=== PATIENT | male | born 2005 | race Caucasian/White ===

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

== ENCOUNTER 2023-01-25 11:09 | Emergency (ER) | payer OTHER, SELFPAY ==
--- NOTE | 2023-01-25 | ECG_ITS ---
Test Reason : CP Blood Pressure : / mmHG Vent. Rate : 053 BPM Atrial Rate : 053 BPM P-R Int : 148 ms QRS Dur : 102 ms QT Int : 422 ms P-R-T Axes : 036 011 046 degrees QTc Int : 395 ms Sinus bradycardia Incomplete right bundle branch block Nonspecific ST abnormality Inferior leads Abnormal ECG When compared with ECG of 28-MAY-2022 01:29, No significant change was found Referred By: Generic ED Physician Electronically Signed By:DENIZ ODONNELL MD
--- NOTE | ~2023-01-25 | XR_ITS ---
EXAMINATION: CHEST 2 VIEWS CLINICAL INFORMATION: Cough/chest pain. COMPARISON: 02/16/2018. TECHNIQUE: PA and lateral views of the chest obtained. FINDINGS: The lungs are well expanded. No focal infiltrate, effusion, edema, or pneumothorax. Cardiac and mediastinal silhouettes are within normal limits for technique. No acute bony abnormality seen XR/XR chest 2V IMPRESSION: No evidence of acute disease
[2023-01-25 11:12] VITALS: BP 128/55; PULSE 99; RESP 18; TEMP 36.7; O2SAT 99; BMI 21.8
--- NOTE | 2023-01-25 11:18 | ED.GENADULT ---
HPI - General Adult General Chief complaint: Upper Respiratory Symptoms Stated complaint: chest pain/ throat pain Time Seen by Provider: 01/25/23 11:21 Source: patient Mode of arrival: ambulatory Limitations: no limitations History of Present Illness HPI narrative: 17-year-old male presents to the emergency department for evaluation of chest pain, cough, sore throat for the past 3 days worsening. Patient reports substernal nonradiating chest pain worse with cough better at rest however still present at rest. No shortness of breath associated with this. Cough dry, not coughing anything up. Sore throat worse with swallowing. No known sick contacts. Denies fevers, chills, headache, vision changes, dizziness, weakness, nausea, vomiting, diarrhea, abdominal pain. Related Data Previous Rx's Medication Instructions Recorded acetaminophen 500 mg tablet 500 mg PO Q6H PRN fever or pain 07/28/22 (Tylenol Extra Strength) #14 tabs cyclobenzaprine 5 mg tablet 5 mg PO Q8H PRN pain (scale score 07/28/22 7-10) 3 days #6 tabs lidocaine 5 % topical patch 1 patch topical DAILY PRN pain #30 07/28/22 (Lidoderm) ea naproxen 500 mg tablet 500 mg PO BID PRN pain 10 days #20 07/28/22 tabs Allergies Allergy/AdvReac Type Severity Reaction Status Date / Time No Known Allergies Allergy Verified 01/25/23 11:11 Review of Systems Review of Systems: Constitutional : No Weight loss, No Fever, No Chills, + Fatigue, + Malaise ENT/Mouth : + sore throat, No Rhinorrhea Eyes: No Eye Pain, No Swelling, No Redness Cardiovascular : No Chest Pain, No SOB, No Dyspnea on Exertion, No Orthopnea, No Edema, No Palpitations Respiratory : + Cough, No Sputum, No Wheezing Gastrointestinal : No Nausea, No Vomiting, No Diarrhea, No Constipation, No abdominal Pain, No Hematochezia, No Melena Genitourinary : No Dysuria, No Urinary Frequency, No Hematuria, Musculoskeletal : No joint pain, No Myalgias, No Joint Swelling Skin : No Skin Lesions, No rash Neuro : No Weakness, No Numbness, No Dizziness, No Headache Psych : No Anxiety/Panic, No Depression All other systems reviewed and are negative Yes all other systems are reviewed and are negative [facility] Past Medical History Attestation statement: The following information was validated with the patient. Source: old records reviewed and nursing notes reviewed Medical History Asthma Seasonal allergies Social History Social History Alcohol intake: never Patient Tobacco Use Status: Never used Tobacco Advance Directives: No Advance Directives Information Provided: No Physical Exam ED Vital Signs: Vital Signs - 24 hr 01/25/23 11:12 Temperature 98.0 F Pulse Rate 99 Respiratory Rate 18 Blood Pressure 128/55 L Pulse Oximetry 99 Oxygen Delivery Method Room Air BMI result Body Mass Index 21.8 vss Appearance: Alert.? Oriented X3.? No acute distress.? Head: Normocephalic, atraumatic, no step-offs or deformities Eyes: Pupils equal, round and reactive to light.? ENT: Pharynx normal, no abscess or exudates.??External ears normal, TMs normal bilaterally and EAC's normal. No pain with manipulation of external ears bilaterally. No mastoid tenderness. Speaking in full sentences controlling secretions well. Neck: Normal inspection.? Neck supple.? CVS: Normal heart rate and rhythm.? Pulses normal.? Respiratory: No respiratory distress.? Breath sounds normal.? Abdomen: Soft and nontender.? Skin: Skin warm and dry.? Normal skin color.? Normal skin turgor.? Extremities: No lower extremity edema.? No calf ttp. 5/5 strength to bilateral upper and lower extremities Back: No midline tenderness, no C-spine tenderness, full range of motion, no CVA tenderness bilaterally Neuro: Oriented X 3.? No motor deficit.? No sensory deficit. CN 2-12 intact Course Course Course Narrative: Complains of cough sore throat, pain in chest with cough Labs/x-ray ordered This rapid medical exam done in triage pending full evaluation by ER provider for full history and physical, evaluation of her results and dispo Reevaluation(s) Reevaluation #1: CBC within normal limits. Chemistry no acute findings. Troponin negative EKG nonischemic. COVID and strep negative this is likely viral illness will encourage saltwater gargles. Educated patient on diagnosis and treatment plan, answered all question, patient verbalizes understanding. At this time patient will be discharged home, advised to return with new or worsening symptoms. Educated on worrisome signs and symptoms and when to return. At this time I feel comfortable discharge home. Time: 12:14 Reevaluation #2: patient eating at time of dc Medical Decision Making Medical Decision Making [facility] Narrative: [id number] 17 yo M presents w/ sore thorat, congestion, chest discomfort w/ cough X 3 days PE Pharynx normal, no abscess or exudates.??External ears normal, TMs normal bilaterally and EAC's normal. No pain with manipulation of external ears bilaterally. No mastoid tenderness. Speaking in full sentences controlling secretions well. Likely viral ilness, URI, pharyngitis. Unlikley strep, retropharyngeal, peritonsillar abscess, threat to airway, epiglottitis, pneumonia, pulmonary embolism, ACS Plan viral test, x-ray. Differential Diagnosis Differential Diagnoses: The differential diagnosis associated with the presentation includes Likely viral ilness, URI, pharyngitis. Unlikley strep, retropharyngeal, peritonsillar abscess, threat to airway, epiglottitis, pneumonia, pulmonary embolism, ACS Admission/Observation Consideration of admission/observation: Escalation of care including admission/observation considered Lab Data [facility] Lab Attestation statement: I reviewed the patient's lab results. 01/25/23 11:43 01/25/23 11:43 Labs: Lab Results 01/25/23 01/25/23 Range/Units 11:18 11:43 WBC 5.3 (4.8-10.8) X10*3/uL RBC 5.24 (4.60-5.80) X10*6/uL Hgb 14.7 (14.0-18.0) g/dl Hct 43.9 (42.0-52.0) % MCV 83.8 (80.0-98.0) fL MCH 28.1 (27.0-33.0) pg MCHC 33.5 (31.0-36.0) g/dl RDW 12.2 (11.0-16.0) % Plt Count 161 (160-400) X10*3/uL MPV 11.9 (9.4-12.4) fL Immature Gran % (Auto) 0.2 (0.0-0.4) % Neut % (Auto) 53.4 (45-73) % Lymph % (Auto) 38.0 (20-40) % [place] % (Auto) 5.6 (2-11) % Eos % (Auto) 2.1 (0-4) % Baso % (Auto) 0.7 (0-2) % Lymph # (Auto) 2.0 (1.2-4.9) X10*3/uL [place] # (Auto) 0.3 (0.1-1.2) X10*3/uL Eos # (Auto) 0.1 (0.0-0.4) X10*3/uL Baso # (Auto) 0.0 (0.0-0.2) X10*3/uL Abs Immat Gran (auto) 0.01 (0.00-0.03) X10*3/uL Absolute Neuts (auto) 2.9 (2.0-8.3) x10*3/uL Absolute Nucleated RBC 0.000 (0.0-0.012) X10*3/uL Nucleated RBC % (auto) 0.0 (0.0-0.2) /100WBC Sodium 139 (135-145) mmol/L Potassium 3.6 (3.3-5.1) mmol/L Chloride 103 (96-108) mmol/L Carbon Dioxide 30 H (22-29) mmol/L Anion Gap 10 L (12-20) BUN 11 (9-16) mg/dL Creatinine 0.81 (0.5-1.4) mg/dL Estim Creat Clear Calc 147.1 Estimated GFR > 60 Random Glucose 95 (60-115) mg/dL Calcium 9.4 (8.4-10.2) mg/dL Troponin I High Sens < 2.7 (<3.5-35.0) ng/L COVID-19 (CARI) Negative (Negative) COVID-19 Clin Com See Note S. pyogenes GrpA MARIA ESTHER Negative (Negative) Independent Interpretation I performed an independent interpretation of an: EKG (Ventricular rate of 53, NE normal, QRS normal, QT/QTC normal. EKG with sinus bradycardia no ST elevations or inversions concerning for acute ischemia.) and Plain X-Ray ( XR/XR chest 2V IMPRESSION: No evidence of acute disease) Radiology Impression Discussion of test interpretation with radiology: I have reviewed the radiologist's reading. Critical Care Time Critical Care Time Critical Care Time: No Discharge Plan Discharge Clinical Impression: Upper respiratory infection, Pharyngitis Patient Disposition: Still a Patient Instructions: Pharyngitis (ED), Upper Respiratory Infection (ED), Viral Syndrome (ED) Additional Instructions: Take your medications as prescribed. If you were prescribed antibiotics today, it is important that you take your medication to their entirety, do not skip any doses, do not finish them early. Follow-up with your primary care provider this week. Return to the emergency department with new or worsening symptoms. Such as fevers, chills, chest pain, shortness of breath, nausea, vomiting, dizziness, headache, vision changes, lethargy In case of emergency call 911 You tested negative for strep and COVID. Please use salt water gargles to help your throat. This is likely viral. No need for antibiotics. Prescriptions: No Action acetaminophen [Tylenol Extra Strength] 500 mg tablet 500 mg PO Q6H PRN (Reason: fever or pain) Qty: 14 0RF lidocaine [Lidoderm] 5 % adhesive patch,medicated 1 patch topical DAILY MDD remove after 12 hours PRN (Reason: pain) Qty: 30 0RF Rx Instructions: leave on most painful area for up to 12 hrs naproxen 500 mg tablet 500 mg PO BID PRN (Reason: pain) 10 Days Qty: 20 0RF cyclobenzaprine 5 mg tablet 5 mg PO Q8H PRN (Reason: pain (scale score 7-10)) 3 Days Qty: 6 0RF Referrals: Physician,Unknown J [Primary Care Provider] - 2 days Stand Alone Forms: Work/School Release
[2023-01-25 11:43] LABS: COVID-19 Test Negative (Negative); IDNOW Serial# 08D9AD1C; IDNOW Serial# BCCEAD1C; Strep A Nucleic Acid Negative (Negative)
[2023-01-25 11:49] LABS: MANUAL DIFF FLAG NO
[2023-01-25 11:51] LABS: Basophils Percent Auto 0.7 % (0-2); Eosinophils Absolute Auto 0.1 X10*3/uL (0.0-0.4); Eosinophils Percent Auto 2.1 % (0-4); Hematocrit 43.9 % (42.0-52.0); Hemoglobin 14.7 g/dl (14.0-18.0); Imm Gran Abs Auto 0.01 X10*3/uL (0.00-0.03); Imm Gran Pct Auto 0.2 % (0.0-0.4); Mean Corpuscular HGB Conc 33.5 g/dl (31.0-36.0); Mean Corpuscular Hemoglobin 28.1 pg (27.0-33.0); Mean Corpuscular Volume 83.8 fL (80.0-98.0); Mean Platelet Volume 11.9 fL (9.4-12.4); Monocytes Absolute Auto 0.3 X10*3/uL (0.1-1.2); Monocytes Percent Auto 5.6 % (2-11); Neutrophils Absolute Auto 2.9 x10*3/uL (2.0-8.3); Neutrophils Percent Auto 53.4 % (45-73); Platelet Count 161 X10*3/uL (160-400); Red Blood Count 5.24 X10*6/uL (4.60-5.80); Red Cell Distribution Width 12.2 % (11.0-16.0); White Blood Count 5.3 X10*3/uL (4.8-10.8)
[2023-01-25 12:04] LABS: Anion Gap 10 (12-20); Blood Urea Nitrogen 11 mg/dL (9-16); Calcium 9.4 mg/dL (8.4-10.2); Carbon Dioxide 30 mmol/L (22-29); Chloride 103 mmol/L (96-108); Creatinine Clr Calc Pharmacy 147.1; Estimated Glomerular Filt Rate > 60; Glucose Random 95 mg/dL (60-115); Potassium 3.6 mmol/L (3.3-5.1); Sodium 139 mmol/L (135-145)
[2023-01-25 12:13] LABS: Troponin-I High Sensitivity < 2.7 ng/L (<3.5-35.0)
== END 2023-01-25 12:21 | disposition home or self-care (01) ==
PROVIDERS: Physician Assistant; Emergency Provider Emergency Medicine
DX: J06.9 Acute upper respiratory infection, unspecified (principal); J02.9 Acute pharyngitis, unspecified; Z11.52 Encounter for screening for COVID-19; J45.909 Unspecified asthma, uncomplicated
CPT/HCPCS: 36415; 71046; 80048; 84484; 85025; 87635; 87651; 93005; 99283; 99284

== ENCOUNTER 2023-05-07 09:01 | Emergency (ER) | payer OTHER, SELFPAY ==
--- NOTE | ~2023-05-07 | CT_ITS ---
EXAMINATION: CT SOFT TISSUE NECK WITH CONTRAST CLINICAL INFORMATION: Concern for mediastinal hemorrhage. COMPARISON: Noncontrast CT scan of the neck earlier 05/07/2023. TECHNIQUE: Following the intravenous administration of 60 mL of Omnipaque 350 intravenous contrast, helical imaging was performed in the axial plane with generation of coronal and sagittal reformatted images. This CT examination was performed using dose optimization techniques as appropriate, variously including the following: *Automated exposure control *Adjustment of mA and/or kV according to patient size (this includes techniques or standardized protocols for targeted exams where dose is matched to indication/reason for exam; i.e. extremities or head) *Use of iterative reconstruction technique DLP: 571 mGy-cm FINDINGS: No hemorrhage is demonstrated there are mildly prominent lymph nodes at multiple levels in the neck bilaterally, which are likely reactive. The parotid glands are homogeneous in attenuation. The submandibular glands are normal. The palatine tonsils are moderately prominent bilaterally. The laryngeal structures are normal. The parapharyngeal fat is preserved. The carotid sheath vasculature opacifies normally. No extra mucosal soft tissue mass or fluid collection is seen. No retropharyngeal fluid collection is seen. The thyroid gland is normal. There is no mediastinal lymphadenopathy. Soft tissue fullness anterior to the superior mediastinum and aortic arch is likely thymus. There is no evidence of leakage of contrast. The left vertebral artery arises directly off the aortic arch, which is a normal variant. There is a 0.8 cm cyst in the right hilum. The visualized lung charles are well-aerated. There are no pleural effusions or pneumothoraces. The mastoid air cells and visualized portions of the paranasal sinuses are well-aerated. The temporomandibular joints are normal. No periapical disease is identified. There are no acute osseous findings. There is mild reversal of the cervical lordosis which is likely positional or due to muscle spasm. The imaged portions of the brain parenchyma are unremarkable. CT/CT soft tissue neck w IV con IMPRESSION: 1. There is no evidence of mediastinal hemorrhage. There are mildly prominent lymph nodes at multiple levels in the neck bilaterally, which are likely reactive. The palatine tonsils are moderately prominent bilaterally.
--- NOTE | ~2023-05-07 | CT_ITS ---
EXAMINATION: CT SOFT TISSUE NECK WITHOUT CONTRAST CLINICAL INFORMATION: Pain following injury COMPARISON: None available. TECHNIQUE: Helical imaging was performed in the axial plane with generation of coronal and sagittal reformatted images. This CT examination was performed using dose optimization techniques as appropriate, variously including the following: *Automated exposure control *Adjustment of mA and/or kV according to patient size (this includes techniques or standardized protocols for targeted exams where dose is matched to indication/reason for exam; i.e. extremities or head) *Use of iterative reconstruction technique DLP: 625 mGy-cm AGRICULTURAL RESEARCH TECHNICIAN: Cervical lordotic straightening. No prevertebral soft tissue swelling. FINDINGS: Nasopharynx hypopharyngeal, retropharyngeal and laryngeal structures are unremarkable. Tonsils are symmetrically prominent with no fluid or air collections. Submandibular and parotid glands are unremarkable in appearance. Evaluation of the vascular structures and lymph nodes limited without oral contrast. Bilateral prominent cervical lymph nodes are seen, largest on the left measuring 2.1 cm, largest on the right measuring 2.2 cm. Muscles appear symmetric and without focal abnormality. No abnormal soft tissue fluid collections or stranding identified. There is suboptimal visualization of the thyroid. Upper thoracic esophagus appears thickened. 1.1 x 2.2 cm hyperdensity anterior mediastinum. Bony structures are intact. Mild cervical lordotic straightening. Visualized intracranial structures are unremarkable in appearance. Intraorbital structures within normal limits. Visualized sinuses and mastoids are free of disease. Visualized lungs are unremarkable. CT/CT soft tissue neck wo IV con IMPRESSION: 2.2 cm anterior mediastinal hyperdensity, possibly related to thymus in this 17-year-old patient. MRI would be useful. If there is a clinical concern/mechanism of injury for posttraumatic mediastinal hemorrhage, IV contrast-enhanced CT would be advised. Prominent cervical lymph nodes and tonsillar enlargement. Findings communicated directly to JUSTYN Wade in the emergency room, 05/07/2023 at 12:27 PM.
[2023-05-07 09:15] VITALS: BP 115/69; PULSE 58; RESP 19; TEMP 36.6; O2SAT 98; BMI 20.9
--- NOTE | 2023-05-07 10:13 | ED.GENADULT ---
HPI - General Adult General Chief complaint: Neck Pain/Injury Stated complaint: Laryngitis Time Seen by Provider: 05/07/23 10:12 Source: patient and family (patient's mother) Mode of arrival: ambulatory Limitations: no limitations History of Present Illness HPI narrative: 17 yo male with pmhx of asthma presents to the ED c/o voice changes. Pt states Friday (05/05) he was hit in the throat while playing basketball by another players shoulder. He woke up Friday with voice changes saying he sounds different when he talks, Pt sounds slightly hoarse when talking. He states his painis mostly lower in his throat, difficulty breathing, LOC, bleeding from the injury sight, pain with swallowing or difficulty eating/drinking. Onset (ago): day(s) (2) Radiation: non-radiation Severity: mild Severity scale (1-10): 3 Pain Consistency: constant Relieving factors: none Exacerbating factors: none Associated symptoms: denies other symptoms Treatments prior to arrival: none Related Data Previous Rx's Medication Instructions Recorded acetaminophen 500 mg tablet 500 mg PO Q6H PRN fever or pain 07/28/22 (Tylenol Extra Strength) #14 tabs cyclobenzaprine 5 mg tablet 5 mg PO Q8H PRN pain (scale score 07/28/22 7-10) 3 days #6 tabs lidocaine 5 % topical patch 1 patch topical DAILY PRN pain #30 07/28/22 (Lidoderm) ea naproxen 500 mg tablet 500 mg PO BID PRN pain 10 days #20 07/28/22 tabs Allergies Allergy/AdvReac Type Severity Reaction Status Date / Time No Known Allergies Allergy Verified 05/07/23 09:15 Review of Systems Constitutional: Constitutional: Reports no additional constitutional complaints, Denies chills, Denies fever(s) and Denies night sweats Eyes: Eyes: Reports no additional eye complaints, Denies blurry vision, Denies change in vision, Denies diplopia, Denies eye discharge, Denies loss of vision and Denies eye pain ENT: Reports change in voice, Denies dizziness and Reports sore throat Cardiovascular: Cardiovascular: Reports no additional cardiovascular complaints, Denies chest pain, Denies lightheadedness, Denies Loss of Consciousness and Denies dyspnea Respiratory: Respiratory: Reports no additional respiratory complaints and Denies dyspnea Gastrointestinal: Gastrointestinal: Reports no additional gastrointestinal complaints, Denies abdominal pain, Denies melena, Denies hematochezia, Denies change in bowel habits and Denies change in stool character Genitourinary: Genitourinary: Reports no additional male genitourinary complaints, Denies hematuria, Denies oliguria, Denies difficulty urinating, Denies dysuria, Denies urinary frequency, Denies urinary hesitancy, Denies urinary incontinence and Denies urinary urgency Musculoskeletal: Musculoskeletal: Reports no additional musculoskeletal complaints, Denies numbness and Denies tingling Neurologic: Denies dizziness, Denies loss of vision, Denies numbness and Denies tingling Psychiatric: Psychiatric: Reports no additional psychiatric complaints Endocrine: Endocrine: Reports no additional endocrine complaints Hematologic/Lymphatic: Hematologic/Lymphatic: Reports no additional hematologic/lymphatic complaints Allergic/Immunologic: Allergic/Immunologic: Reports no additional allergic/immunologic complaints PMFSH Past Medical History Attestation statement: The following information was validated with the patient. (all information validated with the patient's mother) Source: old records reviewed, obtained from family (patient's mother provided additional history and confirmed the history provided by the patient) and nursing notes reviewed Medical History Seasonal allergies Asthma Social History Social History Alcohol intake: never Patient Tobacco Use Status: Never used Tobacco Advance Directives: No Advance Directives Information Provided: No Physical Exam ED Vital Signs: Vital Signs - 24 hr 05/07/23 09:15 05/07/23 12:50 Temperature 98 F Pulse Rate 58 58 Respiratory Rate 19 16 Blood Pressure 115/69 97/58 L Pulse Oximetry 98 100 Oxygen Delivery Method Room Air Room Air BMI result Body Mass Index 20.9 Const General: cooperative, no acute distress, alert and awake Nutritional Appearance: well nourished Orientation/consciousness: patient oriented x3 Limitations: no limitations HENMT Head: Yes normal to inspection and Yes atraumatic Ears: hearing grossly normal bilaterally and external ears normal General nose exam: Normal external nose present, no nasal discharge noted and no epistaxis Face and sinus: Yes normal facial exam, No abrasion and No laceration Mouth: Normal oral and palatal mucosa present, no drooling and no muffled voice Throat: Yes other (pain with palpation of the lower trachea) Eyes General: appearance normal, both eyes and all related structures Periorbital: periorbital findings normal Eyelids: Yes eyelids normal Conjunctivae: conjunctivae normal Pupils: Equal, round and reactive pupils present EOM: EOMs intact bilaterally Neck Neck: Yes normal visual inspection, Yes full ROM and Yes no lymphadenopathy Chest Chest palpation & inspection: normal inspection of the chest Resp Effort & Inspection: normal respiratory effort and able to speak in complete sentences GI Inspection: Yes normal to inspection Neuro General: patient oriented x3 and moves all extremities Cranial nerves: Yes Equal, round and reactive pupils present Cognition (Neuro): normal cognition Motor exam (neuro): 5/5 motor strength present throughout Sensory Exam: Normal double simultaneous stimulation for sensation Coordination: [id number] test normal Extrem General: Yes normal to inspection, Yes full ROM and Yes capillary refill normal Psych Appearance: grossly normal Mental Status: mental status grossly normal Affect: normal affect Attitude: cooperative Thought process: Normal thought process present Thought content: Normal thought content present Insight: Good insight present (Psych) Medications Administered Discontinued Medications Generic Name Dose Route Start Last Admin Trade Name Annmarie PRN Reason Stop Dose Admin Iohexol 100 ml 05/07/23 13:44 05/07/23 13:45 Iohexol 350 Mg/Ml 100 Ml Infus..Btl IV 05/07/23 13:45 60 ml ONCE ONE Administration Medical Decision Making Medical Decision Making [facility] Narrative: Patient is a 17 year old assigned male at with no reported medical history presenting to the emergency department today with throat pain after being hit with another person's shoulder. Patient's physical exam was as noted in the physical exam portion of this note. Patient's blood work was unremarkable. Patient's initial CT soft tissue neck showed a possible mediastinum hemorrhage and the radiologist recommended repeat imaging with IV contrast. CT soft tissue neck with contrast showed no evidence of hemorrhage. I explained my physical exam findings as well as all test results to the patient and the patient's mother. I answered all questions asked by the patient and the patient's mother. I stressed the importance of the patient taking his medication as prescribed. I stressed the importance of the patient following up with his primary care provider. I stressed the importance of the patient returning to the emergency department immediately if his symptoms were to worsen or if he were to develop any dizziness, shortness of breath, difficulty breathing, chest pain, blurry vision, loss of vision, nausea, vomiting, abdominal pain, fever, chills, back pain, or any other complaints. Patient and the patient's mother verbalized agreement and understanding with this treatment plan and discharge. Differential Diagnosis Differential Diagnoses: The differential diagnosis associated with the presentation includes Throat pain laryngitits Tracheal rupture esophogeal rupture hemorrhage Admission/Observation Consideration of admission/observation: Escalation of care including admission/observation considered Patient would have been admitted to the hospital had his work up had any findings where hospital admission was appropriate and his clinical presentation warranted hospital admission. Lab Data [facility] Lab Attestation statement: I reviewed the patient's lab results. My interpretation of these results are in the [facility] Rationale portion of this note. 05/07/23 12:46 05/07/23 12:46 Labs: Lab Results 05/07/23 05/07/23 05/07/23 Range/Units 11:00 11:01 12:46 WBC 5.2 (4.8-10.8) X10*3/uL RBC 5.32 (4.60-5.80) X10*6/uL Hgb 14.8 (14.0-18.0) g/dl Hct 45.2 (42.0-52.0) % MCV 85.0 (80.0-98.0) fL MCH 27.8 (27.0-33.0) pg MCHC 32.7 (31.0-36.0) g/dl RDW 12.6 (11.0-16.0) % Plt Count 218 D (160-400) X10*3/uL MPV 11.3 (9.4-12.4) fL Immature Gran % (Auto) 0.2 (0.0-0.4) % Neut % (Auto) 59.8 (45-73) % Lymph % (Auto) 31.7 (20-40) % [place] % (Auto) 6.0 (2-11) % Eos % (Auto) 1.3 (0-4) % Baso % (Auto) 1.0 (0-2) % Lymph # (Auto) 1.7 (1.2-4.9) X10*3/uL [place] # (Auto) 0.3 (0.1-1.2) X10*3/uL Eos # (Auto) 0.1 (0.0-0.4) X10*3/uL Baso # (Auto) 0.1 (0.0-0.2) X10*3/uL Abs Immat Gran (auto) 0.01 (0.00-0.03) X10*3/uL Absolute Neuts (auto) 3.1 (2.0-8.3) x10*3/uL Absolute Nucleated RBC 0.000 (0.0-0.012) X10*3/uL Nucleated RBC % (auto) 0.0 (0.0-0.2) /100WBC PT 12.1 (11.1-13.3) SEC INR 1.0 (0.9-1.1) APTT 30.7 (26.0-36.8) SEC Sodium 142 (135-145) mmol/L Potassium 4.0 (3.3-5.1) mmol/L Chloride 106 (96-108) mmol/L Carbon Dioxide 29 (22-29) mmol/L Anion Gap 11 L (12-20) BUN 11 (9-16) mg/dL Creatinine 0.79 (0.5-1.4) mg/dL Estim Creat Clear Calc 144.7 Estimated GFR > 60 Random Glucose 89 (60-115) mg/dL Calcium 9.5 (8.4-10.2) mg/dL Total Bilirubin 0.7 (0.0-1.0) mg/dL AST 59 H (5-37) U/L ALT 36 (0-40) U/L Alkaline Phosphatase 86 (39-117) U/L Total Protein 8.1 H (6.5-8.0) g/dL Albumin 4.7 (3.5-5.0) g/dL Influenza Type A (PCR) NEGATIVE (Negative) Influenza Type B (PCR) NEGATIVE (Negative) RSV RNA Qual (PCR) NEGATIVE (Negative) SARS-CoV-2 RNA (RT-PCR) NEGATIVE (Negative) S. pyogenes GrpA MARIA ESTHER Negative (Negative) Independent Interpretation I performed an independent interpretation of an: CT Scan Interpretation: My interpretation is in agreement with the radiologist's impression of these imaging studies. EXAMINATION: CT SOFT TISSUE NECK WITHOUT CONTRAST CLINICAL INFORMATION: Pain following injury COMPARISON: None available. TECHNIQUE: Helical imaging was performed in the axial plane with generation of coronal and sagittal reformatted images. This CT examination was performed using dose optimization techniques as appropriate, variously including the following: *Automated exposure control *Adjustment of mA and/or kV according to patient size (this includes techniques or standardized protocols for targeted exams where dose is matched to indication/reason for exam; i.e. extremities or head) *Use of iterative reconstruction technique DLP: 625 mGy-cm GEOGRAPHY FACULTY MEMBER: Cervical lordotic straightening. No prevertebral soft tissue swelling. FINDINGS: Nasopharynx hypopharyngeal, retropharyngeal and laryngeal structures are unremarkable. Tonsils are symmetrically prominent with no fluid or air collections. Submandibular and parotid glands are unremarkable in appearance. Evaluation of the vascular structures and lymph nodes limited without oral contrast. Bilateral prominent cervical lymph nodes are seen, largest on the left measuring 2.1 cm, largest on the right measuring 2.2 cm. Muscles appear symmetric and without focal abnormality. No abnormal soft tissue fluid collections or stranding identified. There is suboptimal visualization of the thyroid. Upper thoracic esophagus appears thickened. 1.1 x 2.2 cm hyperdensity anterior mediastinum. Bony structures are intact. Mild cervical lordotic straightening. Visualized intracranial structures are unremarkable in appearance. Intraorbital structures within normal limits. Visualized sinuses and mastoids are free of disease. Visualized lungs are unremarkable. CT/CT soft tissue neck wo IV con IMPRESSION: 2.2 cm anterior mediastinal hyperdensity, possibly related to thymus in this 17-year-old patient. MRI would be useful. If there is a clinical concern/mechanism of injury for posttraumatic mediastinal hemorrhage, IV contrast-enhanced CT would be advised. Prominent cervical lymph nodes and tonsillar enlargement. Findings communicated directly to JUSTYN Wade in the emergency room, 05/07/2023 at 12:27 PM. Dictated By: Brianne Andrade MD Signed By: Electronically signed by Brianne Andrade MD 05/07/23 1230 EXAMINATION: CT SOFT TISSUE NECK WITH CONTRAST CLINICAL INFORMATION: Concern for mediastinal hemorrhage. COMPARISON: Noncontrast CT scan of the neck earlier 05/07/2023. TECHNIQUE: Following the intravenous administration of 60 mL of Omnipaque 350 intravenous contrast, helical imaging was performed in the axial plane with generation of coronal and sagittal reformatted images. This CT examination was performed using dose optimization techniques as appropriate, variously including the following: *Automated exposure control *Adjustment of mA and/or kV according to patient size (this includes techniques or standardized protocols for targeted exams where dose is matched to indication/reason for exam; i.e. extremities or head) *Use of iterative reconstruction technique DLP: 571 mGy-cm FINDINGS: No hemorrhage is demonstrated there are mildly prominent lymph nodes at multiple levels in the neck bilaterally, which are likely reactive. The parotid glands are homogeneous in attenuation. The submandibular glands are normal. The palatine tonsils are moderately prominent bilaterally. The laryngeal structures are normal. The parapharyngeal fat is preserved. The carotid sheath vasculature opacifies normally. No extra mucosal soft tissue mass or fluid collection is seen. No retropharyngeal fluid collection is seen. The thyroid gland is normal. There is no mediastinal lymphadenopathy. Soft tissue fullness anterior to the superior mediastinum and aortic arch is likely thymus. There is no evidence of leakage of contrast. The left vertebral artery arises directly off the aortic arch, which is a normal variant. There is a 0.8 cm cyst in the right hilum. The visualized lung charles are well-aerated. There are no pleural effusions or pneumothoraces. The mastoid air cells and visualized portions of the paranasal sinuses are well-aerated. The temporomandibular joints are normal. No periapical disease is identified. There are no acute osseous findings. There is mild reversal of the cervical lordosis which is likely positional or due to muscle spasm. The imaged portions of the brain parenchyma are unremarkable. CT/CT soft tissue neck w IV con IMPRESSION: 1. There is no evidence of mediastinal hemorrhage. There are mildly prominent lymph nodes at multiple levels in the neck bilaterally, which are likely reactive. The palatine tonsils are moderately prominent bilaterally. Dictated By: LYNDA HOUGH MD Signed By: Electronically signed by LYNDA HOUGH MD 05/07/23 8795 Radiology Impression Discussion of test interpretation with radiology: I have reviewed the radiologist's reading. Independent Historian Clinical information obtained from an independent historian. History obtained from or confirmed by: Parent (patient's mother provided additional history and confirmed the history provided by the patient.) Critical Care Time Critical Care Time Critical Care Time: Yes Total Critical Care Time: 45 Attestation: I spent 45 minutes of Critical Care Time with this patient. This does not include time spent on separately reported billable procedures. Discharge Plan Discharge Clinical Impression: Sore throat Patient Disposition: Home, Self-Care Additional Instructions: Your CT scan with IV contrast confirmed no bleed or trauma in your throat. Follow up with your primary care provider. Return to the emergency department immediately if your symptoms worsen or if you develop any dizziness, shortness of breath, difficulty breathing, chest pain, blurry vision, loss of vision, nausea, vomiting, abdominal pain, fever, chills, back pain, or any other complaints. Prescriptions: No Action acetaminophen [Tylenol Extra Strength] 500 mg tablet 500 mg PO Q6H PRN (Reason: fever or pain) Qty: 14 0RF lidocaine [Lidoderm] 5 % adhesive patch,medicated 1 patch topical DAILY MDD remove after 12 hours PRN (Reason: pain) Qty: 30 0RF Rx Instructions: leave on most painful area for up to 12 hrs naproxen 500 mg tablet 500 mg PO BID PRN (Reason: pain) 10 Days Qty: 20 0RF cyclobenzaprine 5 mg tablet 5 mg PO Q8H PRN (Reason: pain (scale score 7-10)) 3 Days Qty: 6 0RF Referrals: [facility] [place] Family Medicine [Provider Group] (Call to establish and follow up with a primary care provider. If you already have a primary care provider, please follow up with them.) [facility] [place] [facility] [Provider Group] (Call to establish and follow up with a primary care provider. If you already have a primary care provider, please follow up with them.) [facility] [place] [facility] [Provider Group] (Call to establish and follow up with a primary care provider. If you already have a primary care provider, please follow up with them.) Stand Alone Forms: Work/School Release Interventions: ED Discharge Assessment Last Done: 05/07/23 14:49 Discharge Date/Time: 05/07/23 14:49 Print Language: Citizen Of [place]
[2023-05-07 11:16] LABS: IDNOW Serial# 08D9AD1C; Strep A Nucleic Acid Negative (Negative)
[2023-05-07 11:43] LABS: Influenza A PCR NEGATIVE (Negative); Influenza B PCR NEGATIVE (Negative); Resp Syncy Virus RNA Qual PCR NEGATIVE (Negative); SARS COV2 PCR INHOUSE NEGATIVE (Negative)
[2023-05-07 12:50] VITALS: BP 97/58; PULSE 58; RESP 16; O2SAT 100
[2023-05-07 12:53] LABS: MANUAL DIFF FLAG NO
[2023-05-07 12:55] LABS: Basophils Absolute Auto 0.1 X10*3/uL (0.0-0.2); Eosinophils Absolute Auto 0.1 X10*3/uL (0.0-0.4); Eosinophils Percent Auto 1.3 % (0-4); Hematocrit 45.2 % (42.0-52.0); Hemoglobin 14.8 g/dl (14.0-18.0); Imm Gran Abs Auto 0.01 X10*3/uL (0.00-0.03); Imm Gran Pct Auto 0.2 % (0.0-0.4); Lymphocytes Absolute Auto 1.7 X10*3/uL (1.2-4.9); Lymphocytes Percent Auto 31.7 % (20-40); Mean Corpuscular HGB Conc 32.7 g/dl (31.0-36.0); Mean Corpuscular Hemoglobin 27.8 pg (27.0-33.0); Mean Platelet Volume 11.3 fL (9.4-12.4); Monocytes Absolute Auto 0.3 X10*3/uL (0.1-1.2); Neutrophils Absolute Auto 3.1 x10*3/uL (2.0-8.3); Neutrophils Percent Auto 59.8 % (45-73); Platelet Count 218 X10*3/uL (160-400); Red Blood Count 5.32 X10*6/uL (4.60-5.80); Red Cell Distribution Width 12.6 % (11.0-16.0); White Blood Count 5.2 X10*3/uL (4.8-10.8)
[2023-05-07 13:00] LABS: Prothrombin Time 12.1 SEC (11.1-13.3)
[2023-05-07 13:02] LABS: Partial Thromboplastin Time 30.7 SEC (26.0-36.8)
[2023-05-07 13:08] LABS: Alanine Aminotransferase 36 U/L (0-40); Albumin Level 4.7 g/dL (3.5-5.0); Alkaline Phosphatase 86 U/L (39-117); Anion Gap 11 (12-20); Aspartate Amino Transferase 59 U/L (5-37); Bilirubin Total 0.7 mg/dL (0.0-1.0); Blood Urea Nitrogen 11 mg/dL (9-16); Calcium 9.5 mg/dL (8.4-10.2); Carbon Dioxide 29 mmol/L (22-29); Chloride 106 mmol/L (96-108); Creatinine Clr Calc Pharmacy 144.7; Estimated Glomerular Filt Rate > 60; Glucose Random 89 mg/dL (60-115); Sodium 142 mmol/L (135-145); Total Protein 8.1 g/dL (6.5-8.0)
[2023-05-07] MEDS: iohexoL 350 MG/ML 100 ML INFUS..BTL IV (13:45)
== END 2023-05-07 14:49 | disposition home or self-care (01) ==
PROVIDERS: Physician Assistant Medical; Emergency Provider Emergency Medicine Emergency Medical Services
DX: J02.9 Acute pharyngitis, unspecified (principal); Z11.52 Encounter for screening for COVID-19; Z20.828 Contact with and (suspected) exposure to other viral communicable diseases
CPT/HCPCS: 0241U; 36415; 70490; 70491; 70492; 80053; 85025; 85610; 85730; 87651; 99284; Q9967

== ENCOUNTER 2023-12-28 18:49 | Emergency (ER) | payer OTHER, SELFPAY ==
--- NOTE | ~2023-12-28 | XR_ITS ---
EXAMINATION: XR CHEST CLINICAL INFORMATION: Cough and shortness of breath COMPARISON: Chest radiograph 01/25/2023 TECHNIQUE: 2 views of the chest were obtained. FINDINGS: No significant abnormality is noted involving the heart, lungs, mediastinum, bony thorax or soft tissues. XR/XR chest 2V IMPRESSION: Unremarkable examination. Electronically signed by: Kyle Aviles MD 12/28/2023 07:42 PM EDT RP
[2023-12-28 18:50] VITALS: BP 107/46; PULSE 61; RESP 19; TEMP 36.9; O2SAT 98; BMI 22.3
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
[2023-12-28 20:23] LABS: Influenza A PCR NEGATIVE (Negative); Influenza B PCR NEGATIVE (Negative); Resp Syncy Virus RNA Qual PCR NEGATIVE (Negative); SARS COV2 PCR INHOUSE NEGATIVE (Negative)
[2023-12-28 20:32] VITALS: BP 100/64; PULSE 61; RESP 16; TEMP 37.2; O2SAT 99
[2023-12-28 20:40] VITALS: BP 100/64; PULSE 61; RESP 16; TEMP 37.2; O2SAT 99
== END 2023-12-28 20:47 | disposition home or self-care (01) ==
LOC: HO.ED 20:44
PROVIDERS: Physician Assistant Medical; Emergency Provider Internal Medicine
DX: J45.901 Unspecified asthma with (acute) exacerbation (principal); M54.2 Cervicalgia; R05.9 Cough, unspecified; R06.02 Shortness of breath; R07.89 Other chest pain; Z03.818 Encounter for observation for suspected exposure to other biological agents ruled out
CPT/HCPCS: 0241U; 71046; 99283

== ENCOUNTER 2024-03-14 12:58 | Emergency (ER) | payer OTHER, SELFPAY ==
[2024-03-14 13:02] VITALS: BP 129/93; PULSE 100; RESP 19; TEMP 36.6; O2SAT 99; BMI 22.3
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
[2024-03-14 14:00] VITALS: BP 137/83; PULSE 105; RESP 16; TEMP 37.3; O2SAT 99
[2024-03-14] MEDS: Diphth,Pertus(ACell),Tet Adult 0.5 ML SYRINGE IM (15:58)
[2024-03-14 16:28] VITALS: BP 137/83; PULSE 105; RESP 16; TEMP 37.3; O2SAT 99
== END 2024-03-14 16:29 | disposition home or self-care (01) ==
PROVIDERS: Emergency Provider Emergency Medicine Emergency Medical Services
DX: T33.831A Superficial frostbite of right toe(s), initial encounter (principal); T33.832A Superficial frostbite of left toe(s), initial encounter; X31.XXXA Exposure to excessive natural cold, initial encounter; Y93.89 Activity, other specified; Y92.89 Other specified places as the place of occurrence of the external cause; Y99.8 Other external cause status; Z23 Encounter for immunization
CPT/HCPCS: 90471; 90715; 99283; 99284

== ENCOUNTER 2024-06-06 06:00 | Emergency (ER) | payer OTHER, SELFPAY ==
[2024-06-06 06:04] VITALS: BP 114/67; PULSE 106; RESP 18; TEMP 38.3; O2SAT 96
--- NOTE | 2024-06-06 06:19 | MHC.EDTECH ---
Patient brought into triage area,labs,sars/flu/rsv,and strep obtained and sent to lab, pt brought to ED #1
[2024-06-06 06:26] LABS: MANUAL DIFF FLAG NO
[2024-06-06 06:27] LABS: Basophils Percent Auto 0.5 % (0-2); Hematocrit 39.6 % (42.0-52.0); Hemoglobin 13.4 g/dl (14.0-18.0); Imm Gran Abs Auto 0.01 X10*3/uL (0.00-0.03); Imm Gran Pct Auto 0.2 % (0.0-0.4); Lymphocytes Absolute Auto 0.8 X10*3/uL (1.2-4.9); Lymphocytes Percent Auto 12.1 % (20-40); Mean Corpuscular HGB Conc 33.8 g/dl (31.0-36.0); Mean Corpuscular Volume 82.8 fL (80.0-98.0); Mean Platelet Volume 11.3 fL (9.4-12.4); Monocytes Absolute Auto 0.7 X10*3/uL (0.1-1.2); Monocytes Percent Auto 10.7 % (2-11); Neutrophils Absolute Auto 4.8 x10*3/uL (2.0-8.3); Neutrophils Percent Auto 76.5 % (45-73); Platelet Count 112 X10*3/uL (160-400); Red Blood Count 4.78 X10*6/uL (4.60-5.80); Red Cell Distribution Width 13.2 % (11.0-16.0); White Blood Count 6.3 X10*3/uL (4.8-10.8)
[2024-06-06 06:50] LABS: Alanine Aminotransferase 9 U/L (0-40); Albumin Level 4.5 g/dL (3.5-5.0); Alkaline Phosphatase 99 U/L (39-117); Anion Gap 13 (12-20); Aspartate Amino Transferase 21 U/L (5-37); Bilirubin Total 0.5 mg/dL (0.0-1.0); Blood Urea Nitrogen 11 mg/dL (9-16); Calcium 8.9 mg/dL (8.4-10.2); Carbon Dioxide 23 mmol/L (22-29); Chloride 107 mmol/L (96-108); Creatinine Clr Calc Pharmacy 117.5; Estimated Glomerular Filt Rate > 60; Glucose Random 111 mg/dL (60-115); Potassium 3.5 mmol/L (3.3-5.1); Sodium 139 mmol/L (135-145); Total Protein 7.8 g/dL (6.5-8.0)
--- NOTE | 2024-06-06 06:57 | ED.GENADULT ---
HPI - General Adult General Chief complaint: Headache Stated complaint: body aches Time Seen by Provider: 06/06/24 06:31 Source: patient, family, RN notes reviewed and old records reviewed Mode of arrival: ambulatory Limitations: no limitations History of Present Illness ED Provider: Ty TRINH narrative: Patient is a 18-year-old male presenting to the emergency department with complaint of body aches, fever, right sided sore throat, headache and lightheadedness since yesterday morning. Girlfriend and child recently tested positive for flu. Denies cough, shortness of breath, chest pain or palpitations. Reports nausea but denies abdominal pain, vomiting or diarrhea. MD complaint: fever and body aches Onset (ago): day(s) Treatments prior to arrival: none Related Data Previous Rx's ?Medication ?Instructions ?Recorded acetaminophen 500 mg tablet 500 mg PO Q6H PRN fever or pain 07/28/22 (Tylenol Extra Strength) #14 tabs cyclobenzaprine 5 mg tablet 5 mg PO Q8H PRN pain (scale score 07/28/22 7-10) 3 days #6 tabs lidocaine 5 % topical patch 1 patch topical DAILY PRN pain #30 07/28/22 (Lidoderm) ea naproxen 500 mg tablet 500 mg PO BID PRN pain 10 days #20 07/28/22 tabs prednisone 20 mg tablet 20 mg PO DAILY 7 days #7 tabs 12/28/23 ibuprofen 200 mg tablet 200 mg PO Q6H PRN pain 7 days #28 03/14/24 tabs ondansetron 4 mg disintegrating 4 mg PO Q8H PRN nausea and 06/06/24 tablet vomiting #10 tabs Allergies Allergy/AdvReac Type Severity Reaction Status Date / Time No Known Allergies Allergy Verified 06/06/24 06:05 Review of Systems Review of Systems: As per HPI Yes all other systems are reviewed and are negative Constitutional: Constitutional: Reports as per HPI PMFSH Past Medical History Medical History Seasonal allergies Asthma Social History Social History Alcohol intake: never Patient Tobacco Use Status: Never used Tobacco Smoked in Last 30 Days: No Advance Directives: No Advance Directives Information Provided: Yes Do you have a plan to hurt others: No Plan Physical Exam ED Vital Signs: Vital Signs - 24 hr 06/06/24 06:04 06/06/24 07:58 06/06/24 09:06 Temperature 100.9 F H 102.2 F H 99.7 F Pulse Rate 106 H 99 79 Respiratory Rate 18 18 16 Blood Pressure 114/67 126/60 138/51 L Pulse Oximetry 96 99 97 Oxygen Delivery Method Room Air Room Air Room Air BMI result Body Mass Index 20.0 Vital signs have been reviewed and appear to be correct. Blood pressure normal. Heart rate mildly tachycardic. Respiratory rate normal. Temperature febrile. Oxygen saturation normal. Const General: cooperative, healthy appearing and no acute distress Orientation/consciousness: oriented to person, oriented to place, oriented to time and patient oriented x3 Limitations: no limitations HENMT Head: Yes normocephalic and Yes atraumatic Ears: external ears normal General nose exam: Normal external nose present Face and sinus: Yes face symmetric Mouth: oropharynx normal and moist mucous membranes Throat: Yes uvula midline, Yes posterior oropharynx abnormal (+erythema, no tonsillar edema or exudate) and No uvular edema Eyes Pupils: Equal, round and reactive pupils present Neck Neck: Yes normal visual inspection, Yes no lymphadenopathy and Yes supple Resp Effort & Inspection: normal respiratory effort and able to speak in complete sentences Auscultation: clear to auscultation bilaterally Cardio Rate: regular rate Rhythm: regular rhythm Heart sounds: S1 normal heart sound present and S2 normal heart sound present GI Palpation (GI): Soft to palpation and nontender Auscultation: normoactive bowel sounds General: Yes no CVA tenderness Back/Spine/Pelvis Back: no CVA tenderness Skin General skin exam: elasticity normal and turgor normal Neuro General: oriented to person, oriented to place, oriented to time, patient oriented x3, moves all extremities, no focal motor deficits and CN's II-XI intact bilaterally Cranial nerves: Yes Equal, round and reactive pupils present Cognition (Neuro): normal cognition Extrem General: Yes full ROM, Yes no pedal edema and Yes no calf tenderness Psych Mental Status: mental status grossly normal Affect: normal affect Thought process: Normal thought process present Medications Administered Discontinued Medications Generic Name Dose Route Start Last Admin Trade Name Freq PRN Reason Stop Dose Admin Sodium Chloride 1,000 mls @ 999 mls/hr 06/06/24 07:00 06/06/24 09:09 Ns IV 06/06/24 08:00 Infused .Q1H1M AICHA Infusion Ibuprofen 600 mg 06/06/24 06:59 06/06/24 07:56 Ibuprofen 600 Mg Tablet PO 06/06/24 07:00 600 mg ONCE ONE Administration Ondansetron HCl 4 mg 06/06/24 06:59 06/06/24 07:56 Ondansetron Hcl 4 Mg/2 Ml Vial IVPUSH 06/06/24 07:00 4 mg ONCE ONE Administration Medical Decision Making Medical Decision Making [facility] Narrative: Patient is a 18-year-old male presenting to the emergency department with complaint of body aches, fever, right sided sore throat, headache and lightheadedness since yesterday morning. On exam patient is awake, A+Ox3, slightly tachycardic, febrile, VS otherwise WNL, normal neurological exam without focal deficits, physical exam findings as above. Given reported symptoms and physical exam findings, initial differential includes but is not limited to viral illness, COVID, flu, RSV, strep pharyngitis. Labs unremarkable. Strep and viral swabs negative. Feel given recent exposure, symptoms likely due to influenza, viral swab possibly negative due to issue with collection. Results discussed with patient and all questions answered. Advised adequate rest, adequate fluid intake, Tylenol and ibuprofen as needed for fever. Return precautions discussed at bedside. Patient verbalized understanding of and agreement with plan. Differential Diagnosis Differential Diagnoses: The differential diagnosis associated with the presentation includes As per [facility] Lab Data [facility] Lab Attestation statement: I reviewed the patient's lab results. Per [facility] 06/06/24 06:18 06/06/24 06:18 Labs: Lab Results 06/06/24 06/06/24 Range/Units 06:18 06:19 WBC 6.3 (4.8-10.8) X10*3/uL RBC 4.78 (4.60-5.80) X10*6/uL Hgb 13.4 L (14.0-18.0) g/dl Hct 39.6 L (42.0-52.0) % MCV 82.8 (80.0-98.0) fL MCH 28.0 (27.0-33.0) pg MCHC 33.8 (31.0-36.0) g/dl RDW 13.2 (11.0-16.0) % Plt Count 112 L D (160-400) X10*3/uL MPV 11.3 (9.4-12.4) fL Immature Gran % (Auto) 0.2 (0.0-0.4) % Neut % (Auto) 76.5 H (45-73) % Lymph % (Auto) 12.1 L (20-40) % [place] % (Auto) 10.7 (2-11) % Eos % (Auto) 0.0 (0-4) % Baso % (Auto) 0.5 (0-2) % Lymph # (Auto) 0.8 L (1.2-4.9) X10*3/uL [place] # (Auto) 0.7 (0.1-1.2) X10*3/uL Eos # (Auto) 0.0 (0.0-0.4) X10*3/uL Baso # (Auto) 0.0 (0.0-0.2) X10*3/uL Abs Immat Gran (auto) 0.01 (0.00-0.03) X10*3/uL Absolute Neuts (auto) 4.8 (2.0-8.3) x10*3/uL Absolute Nucleated RBC 0.000 (0.0-0.012) X10*3/uL Nucleated RBC % (auto) 0.0 (0.0-0.2) /100WBC Sodium 139 (135-145) mmol/L Potassium 3.5 (3.3-5.1) mmol/L Chloride 107 (96-108) mmol/L Carbon Dioxide 23 (22-29) mmol/L Anion Gap 13 (12-20) BUN 11 (9-16) mg/dL Creatinine 0.95 (0.5-1.4) mg/dL Estim Creat Clear Calc 117.5 Estimated GFR > 60 Random Glucose 111 (60-115) mg/dL Calcium 8.9 D (8.4-10.2) mg/dL Total Bilirubin 0.5 (0.0-1.0) mg/dL AST 21 (5-37) U/L ALT 9 (0-40) U/L Alkaline Phosphatase 99 (39-117) U/L Total Protein 7.8 (6.5-8.0) g/dL Albumin 4.5 (3.5-5.0) g/dL Influenza Type A (PCR) NEGATIVE (Negative) Influenza Type B (PCR) NEGATIVE (Negative) RSV RNA Qual (PCR) NEGATIVE (Negative) SARS-CoV-2 RNA (RT-PCR) NEGATIVE (Negative) S. pyogenes GrpA MARIA ESTHER Negative (Negative) External Record Review External record reviewed: Inpatient record, Office record and Outpatient record Prescription Management I considered prescription management with: Other Discharge Plan Discharge Clinical Impression: Viral illness Patient Disposition: Home, Self-Care Instructions: Influenza (DC), Viral Syndrome (ED) Additional Instructions: You were evaluated in the emergency department today for body aches and fever. Your Covid, flu, RSV, and strep tests were all negative. Your symptoms are likely related to a viral illness which will resolve on its own with time and rest. You should ensure adequate fluid intake, and can use Tylenol 650 mg or ibuprofen 600 mg every 6 hours as needed for fever or discomfort. We also recommend using over the counter nasal saline spray to thin your mucous. Please follow-up with your primary care provider this week. Return to the emergency department if you develop chest pain, worsening shortness of breath, difficulty swallowing, fever 100.4? F or greater or any other concerning symptoms. Prescriptions: New ondansetron 4 mg tablet,disintegrating 4 mg PO Q8H PRN (Reason: nausea and vomiting) Qty: 10 0RF No Action acetaminophen [Tylenol Extra Strength] 500 mg tablet 500 mg PO Q6H PRN (Reason: fever or pain) Qty: 14 0RF lidocaine [Lidoderm] 5 % adhesive patch,medicated 1 patch topical DAILY MDD remove after 12 hours PRN (Reason: pain) Qty: 30 0RF Rx Instructions: leave on most painful area for up to 12 hrs naproxen 500 mg tablet 500 mg PO BID PRN (Reason: pain) 10 Days Qty: 20 0RF cyclobenzaprine 5 mg tablet 5 mg PO Q8H PRN (Reason: pain (scale score 7-10)) 3 Days Qty: 6 0RF ibuprofen 200 mg tablet 200 mg PO Q6H PRN (Reason: pain) 7 Days Qty: 28 0RF prednisone 20 mg tablet 20 mg PO DAILY 7 Days Qty: 7 0RF Print Language: Brazilian
[2024-06-06 07:04] LABS: Influenza A PCR NEGATIVE (Negative); Influenza B PCR NEGATIVE (Negative); Resp Syncy Virus RNA Qual PCR NEGATIVE (Negative); SARS COV2 PCR INHOUSE NEGATIVE (Negative)
[2024-06-06] MEDS: ondansetron HCL 4 MG/2 ML VIAL IVPUSH (07:56)
[2024-06-06] MEDS: Ibuprofen 600 MG TABLET PO (07:56)
[2024-06-06] MEDS: 0.9 % Sodium Chloride 1,000 ML 999 ML IV (07:56)
[2024-06-06 07:58] VITALS: BP 126/60; PULSE 99; RESP 18; TEMP 39; O2SAT 99
[2024-06-06 08:05] LABS: IDNOW Serial# 58CA691E; Strep A Nucleic Acid Negative (Negative)
[2024-06-06 09:06] VITALS: BP 138/51; PULSE 79; RESP 16; TEMP 37.6; O2SAT 97
[2024-06-06 09:51] VITALS: BP 138/51; PULSE 79; RESP 16; TEMP 37.6; O2SAT 97
== END 2024-06-06 09:51 | disposition home or self-care (01) ==
PROVIDERS: Emergency Provider Emergency Medicine
DX: B34.9 Viral infection, unspecified (principal); J02.9 Acute pharyngitis, unspecified; Z03.818 Encounter for observation for suspected exposure to other biological agents ruled out; J45.909 Unspecified asthma, uncomplicated; Z79.899 Other long term (current) drug therapy
CPT/HCPCS: 0241U; 80053; 85025; 87651; 96361; 96374; 99284; J2405

== ENCOUNTER 2024-10-10 12:14 | Emergency (ER) | payer OTHER, SELFPAY ==
--- NOTE | ~2024-10-10 | XR_ITS ---
CLINICAL HISTORY: injury, pain 4 view right ankle Comparison: None provided Findings: There is a 1.8 x 3.6 mm ossific density adjacent to the medial aspect of the talus. There is borderline widening of the medial clear space at 3.8 mm. No dislocation. No significant loss of joint space, osteophytes, or erosions. There is an ankle effusion. No radiopaque foreign body. IMPRESSION: Tiny avulsion fracture just inferior to the medial clear space. The medial aspect of the talus is the possible donor site. This document has been electronically signed by: Mary Ellen Lai DO on 10/10/2024 13:40:09
--- NOTE | ~2024-10-10 | XR_ITS ---
CLINICAL HISTORY: injury, pain 3 view right knee Comparison: None provided Findings: Five films total. No fractures or dislocations. No significant loss of joint space, osteophytes, or erosions. No joint effusion. No radiopaque foreign body. IMPRESSION: No acute fracture, dislocation or significant joint effusion. This document has been electronically signed by: Mary Ellen Lai DO on 10/10/2024 13:39:03
[2024-10-10 12:59] VITALS: BP 110/52; PULSE 67; RESP 16; TEMP 36.6; O2SAT 100; BMI 24.3
--- NOTE | 2024-10-10 12:59 | ED_ITS ---
HPI - General Adult General Chief complaint: Extremity Injury, Lower Stated complaint: right knee swelling and painful Time Seen by Provider: 10/10/24 13:47 Source: patient Mode of arrival: ambulatory Limitations: no limitations History of Present Illness ED Provider: Elvira Kurtz APRN HPI narrative: 19 yo male with no known medical history presents to the ER with complaints of right knee and ankle pain. Patient reports last night he had several alcoholic beverages. He was walking in his right knee became unstable causing him to fall and twist the right ankle. Patient reports since then he has had ankle and knee pain. Denies any swelling, redness, numbness, tingling of the extremity. Related Data Previous Rx's ?Medication ?Instructions ?Recorded acetaminophen 500 mg tablet 500 mg PO Q6H PRN fever or pain 07/28/22 (Tylenol Extra Strength) #14 tabs cyclobenzaprine 5 mg tablet 5 mg PO Q8H PRN pain (scal e score 07/28/22 7-10) 3 days #6 tabs lidocaine 5 % topical patch 1 patch topical DAILY PRN pain #30 07/28/22 (Lidoderm) ea naproxen 500 mg tablet 500 mg PO BID PRN pain 10 da ys #20 07/28/22 tabs prednisone 20 mg tablet 20 mg PO DAILY 7 days #7 tab s 12/28/23 ibuprofen 200 mg tablet 200 mg PO Q6H PRN pain 7 day s #28 03/14/24 tabs ondansetron 4 mg disintegrating 4 mg PO Q8H PRN nausea and 06/06/24 tablet vomiting #10 tabs ibuprofen 600 mg tablet 600 mg PO Q8H PRN pain #30 t abs 10/10/24 Allergies Allergy/AdvReac Type Severity Reaction Status Date / Time No Known Allergies Allergy Verified 10/10/24 13:00 Review of Systems Review of Systems: Yes all other systems are reviewed and are negative Constitutional: Constitutional: Reports no additional constitutional complaints, Denies body ache(s), Denies chills, Denies fever(s), Denies headache(s) and Denies weakness Eyes: Eyes: Reports no additional eye complaints and Denies change in vision ENT: Reports system reviewed and no additional complaints, except as documented, Denies dizziness, Denies headache(s), Denies nasal congestion, Denies nasal discharge and Denies neck pain Cardiovascular: Cardiovascular: Reports no additional cardiovascular complaints, Denies chest pain, Denies leg edema and Denies dyspnea Respiratory: Respiratory: Reports no additional respiratory complaints, Denies cough and Denies dyspnea Gastrointestinal: Gastrointestinal: Reports no additional gastrointestinal complaints, Denies abdominal pain, Denies diarrhea, Denies nausea and Denies vomiting Genitourinary: Genitourinary: Denies urinary incontinence Musculoskeletal: Musculoskeletal: Reports no additional musculoskeletal complaints, Denies back pain, Reports arthralgias, Reports joint swelling, Denies neck pain, Denies numbness and Denies tingling Integumentary/Breasts: Skin/Breast: Reports system reviewed and no additional complaints, except as docu and Denies rash Neurologic: Reports system reviewed and no additional complaints, except as documented, Denies Abnormal speech present, Denies dizziness, Denies headache(s), Denies numbness, Denies tingling and Denies weakness PMFSH Past Medical History Attestation statement: The following information was validated with the patient. Source: old records reviewed and nursing notes reviewed Medical History Seasonal allergies Asthma Social History Social History Alcohol intake: never Patient Tobacco Use Status: Never used Tobacco Advance Directives: No Advance Directives Information Provided: No Do you have a plan to hurt others: No Plan Physical Exam ED Vital Signs: Vital Signs - 24 hr 10/10/24 12:59 Temperature 97.9 F Pulse Rate 67 Respiratory Rate 16 Blood Pressure 110/52 L Pulse Oximetry 100 Oxygen Delivery Method Room Air BMI result Body Mass Index 24.3 Const General: cooperative, healthy appearing, comfortable and no acute distress Orientation/consciousness: patient oriented x3 Limitations: no limitations HENMT Head: Yes normal to inspection Ears: hearing grossly normal bilaterally General nose exam: Normal external nose present Face and sinus: Yes normal facial exam Mouth: Normal oral and palatal mucosa present Throat: Yes posterior oropharynx normal Eyes General: appearance normal, both eyes and all related structures Pupils: Equal, round and reactive pupils present Neck Neck: Yes normal visual inspection Chest Chest palpation & inspection: normal inspection of the chest Resp Effort & Inspection: normal respiratory effort Auscultation: clear to auscultation bilaterally Cardio Rate: regular rate Rhythm: regular rhythm Peripheral pulses: Peripheral pulses 2+ throughout GI Inspection: Yes normal to inspection Palpation (GI): Soft to palpation and nontender Auscultation: normal bowel sounds Back/Spine/Pelvis Thoracic/Lumbar Spine: thoracic and lumbar spine normal to inspection Skin General skin exam: no rashes or lesions noted Neuro General: patient oriented x3, no focal motor deficits and normal sensation to monofilament Cranial nerves: Yes Equal, round and reactive pupils present Cognition (Neuro): normal cognition Speech: No Abnormal speech present Gait exam (Neuro): Normal gait present Motor exam (neuro): 5/5 motor strength present throughout Extrem Other: Pain on palpation to the right medial knee. Full active and passive range of motion. No swelling appreciated. Pain on palpation to the right lateral ankle. Full active and passive range of motion. Mild swelling. 2+ DP and PT pulses. Normal sensation. General: Yes normal to inspection Course Course Course Narrative: Elviramarie Kurtz [employer] 10/10 9465 This is a rapid medical exam. Deferred additional HPI, ROS, PE to primary pr ovider. 19 yo male with no known medical history here with complaints of right knee and right ankle injury which occurred last evening. Will obtain x-rays. VSS Procedures Orthopedic Splinting/Casting Injury #1: Side: right Lower Extremity Injury Location: knee and ankle Lower Extremity Immobilizer: AirCast Other Orthopedic Equipment: crutches Medical Decision Making Medical Decision Making MDM Narrative: 19 yo male with no known medical history presents to the ER with complaints of right knee and ankle pain. Patient reports last night he had several alcoholic beverages. He was walking in his right knee became unstable causing him to fall and twist the right ankle. Patient reports since then he has had ankle and knee pain. Denies any swelling, redness, numbness, tingling of the extremity. Pain on palpation to the right medial knee. Full active and passive range of motion. No swelling appreciated. Pain on palpation to the right lateral ankle. Full active and passive range of motion. Mild swelling. 2+ DP and PT pulses. Normal sensation. Will obtain x-rays Differential Diagnosis Differential Diagnoses: The differential diagnosis associated with the presentation includes fracture, strain, sprain Low suspician for vascular injury, complex fracture, dislocation Admission/Observation Consideration of admission/observation: Escalation of care including admission/observation considered Low suspician for vascular injury, complex fracture, dislocation requiring advanced imaging, urgent orthopedic consultation and or admission Independent Interpretation I performed an independent interpretation of an: Plain X-Ray Interpretation: I independently reviewed the x-rays and agree with the radiology report Radiology Impression Discussion of test interpretation with radiology: I have reviewed the radiologist's reading. Radiologist Impression: [address] [address] XRay Report Signed Patient: Sai Beck MR#: [id number] : 2005 Acct:[id number] Age/Sex: 19 / M ADM Date: 10/10/24 Loc: HO.ED Attending Dr: Ordering Physician: Elvira Kurtz NP Date of Service: 10/10/24 Procedure(s): XR ankle RT min 3V Accession Number(s): [id number] cc: Elvira Kurtz NP; Physician,None ~ CLINICAL HISTORY: injury, pain 4 view right ankle Comparison: None provided Findings: There is a 1.8 x 3.6 mm ossific density adjacent to the medial aspect of the talus. There is borderline widening of the medial clear space at 3.8 mm. No dislocation. No significant loss of joint space, osteophytes, or erosions. There is an ankle effusion. No radiopaque foreign body. IMPRESSION: Tiny avulsion fracture just inferior to the medial clear space. The medial aspect of the talus is the possible donor site. This document has been electronically signed by: Mary Ellen Lai DO on 10/10/2024 13:40:[address] [address] XRay Report Signed Patient: Sai Beck MR#: [id number] : 2005 Acct:[id number] Age/Sex: 19 / M ADM Date: 10/10/24 Loc: HO.ED Attending Dr: Ordering Physician: Elvira Kurtz NP Date of Service: 10/10/24 Procedure(s): XR knee RT 4V Accession Number(s): [id number] cc: Elvira Kurtz NP; Physician,None ~ CLINICAL HISTORY: injury, pain 3 view right knee Comparison: None provided Findings: Five films total. No fractures or dislocations. No significant loss of joint space, osteophytes, or erosions. No joint effusion. No radiopaque foreign body. IMPRESSION: No acute fracture, dislocation or significant joint effusion. This document has been electronically signed by: Mary Ellen Lai DO on 10/10/2024 13:39:03 Tests considered The following testing was considered but not selected: Low suspician for vascular injury, complex fracture, dislocation requiring advanced imaging, Discharge Plan Discharge Clinical Impression: Knee sprain, Avulsion fracture of ankle Patient Disposition: Home, Self-Care Instructions: Ankle Fracture (ED), Knee Sprain (ED), Crutch Instructions (ED) Additional Instructions: Rest, ice, elevation Use the crutches and the Aircast until you follow up with Orthopedics Prescriptions: New ibuprofen 600 mg tablet 600 mg PO Q8H PRN (Reason: pain) Qty: 30 0RF No Action acetaminophen [Tylenol Extra Strength] 500 mg tablet 500 mg PO Q6H PRN (Reason: fever or pain) Qty: 14 0RF lidocaine [Lidoderm] 5 % adhesive patch,medicated 1 patch topical DAILY MDD remove after 12 hours PRN (Reason: pain) Qty: 30 0RF Rx Instructions: leave on most painful area for up to 12 hrs naproxen 500 mg tablet 500 mg PO BID PRN (Reason: pain) 10 Days Qty: 20 0RF cyclobenzaprine 5 mg tablet 5 mg PO Q8H PRN (Reason: pain (scale score 7-10)) 3 Days Qty: 6 0RF ibuprofen 200 mg tablet 200 mg PO Q6H PRN (Reason: pain) 7 Days Qty: 28 0RF ondansetron 4 mg tablet,disintegrating 4 mg PO Q8H PRN (Reason: nausea and vomiting) Qty: 10 0RF prednisone 20 mg tablet 20 mg PO DAILY 7 Days Qty: 7 0RF [place] [facility] [place] [facility] [place] Group] - 1 week Physician,None [Primary Care Provider, Medical] Discharge Date/Time: 10/10/24 14:14 Print Language: Estonian
--- OUTSIDE RECORDS SUMMARY | 2024-10-10 14:08 | XMS_ITS | Clinical Summary ---
Author Organization [email or web address] Address [address] [facility] [address] [place] [address] Care Team Providers Care Inspection And Testing Supervisor Name Role Phone Teri Scherer MD Primary Care Provider [phone] Allergies No known active allergies Medications No known medications Active Problems Problem Noted Date Diagnosed Date Asthma 11/20/2022 Myopia of both eyes 08/02/2022 Social History Tobacco Use Types Packs/Day Years Used Date Smoking Tobacco: Former Cigarettes Tobacco Cessation:Counseling Given: Not Answered Sex and Gender Information Value Date Recorded Sex Assigned at Male 08/06/2022 5:02 PM EDT Legal Sex Male 8:39 PM EDT Gender Identity Male 08/06/2022 5:02 PM EDT Sexual Orientation Choose not to disclose 2022 5:02 PM EDT Last Filed Vital Signs Vital Sign Reading Time Taken Comments Blood Pressure 110/70 11/20/2022 2:52 PM EDT Pulse - - Temperature 36.2 C (97.2 F) 11/20/2022 2:52 PM EDT Respiratory Rate - - Oxygen Saturation - - Inhaled Oxygen Concentration - - Weight - - Height - - Body Mass Index - - Plan of Treatment Health Maintenance Due Date Last Done Comments Chlamydia and Gonorrhea Screening 2003 Depression Screening 2003 HIV Screening 2003 SDOH Screening 2003 Disability Screening 2003 Alcohol/Substance Use Screening 2015 Tobacco Screening 2015 Family Planning (PISQ) 08/28/2018 Meningococcal B Vaccine (1 of 2 - Standard) 2019 Hepatitis C Screening 08/28/2021 Pneumococcal Vaccine: Pediatrics (0 to 5 Years) and At-Risk Patients (6 to 49) Years (1 of 2 - PCV) 08/28/2022 12/20/2004, 03/05/2004, 01/04/2004, Additional history exists COVID-19 Vaccine (2023- season) 2023 Influenza Vaccine (#1) 2024 , 11/19/2019, 12/14/2018, Additional history exists DTaP/Tdap/Td Vaccines (8 - Td or Tdap) 03/14/2034 03/14/2024, 09/28/2014, 06/01/2008, Additional history exists Zoster Vaccines (1 of 2) 08/28/2053 RSV Patients and Patients Aged 60 years or older (1 - 1-dose 75+ series) 08/28/2078 HIB Vaccines Completed 12/20/2004, 02/21, 01/04/2004, Additional history exists Hepatitis B Vaccines Completed 10/09/2006, 06/14/2004, 2003 IPV Vaccines Completed 06/01/2008, 05/23, 01/04/2004, Additional history exists Hepatitis A Vaccines Completed 09/28/2013, 10/26/19 11 HPV Vaccines Completed 10/24/2015, 02/21, 09/28/2014 Meningococcal Vaccine Completed 06/28/2020, 015 RSV under 20 months Aged Out No longe r eligible based on patient's age to complete this topic Rotavirus Vaccines Aged Out No longer eligible based on patient's age to complete this topic Insurance [facility] ACO [facility] STANDARD Member Subscriber Plan / Payer (Ef fective 2022-Present) Name:Sai Beck Jr. Relation to Subscriber:Self Name:Sai Beck Jr. Payer ID:Not on file Group ID:Not on file Type:Medicaid Address: [address] [facility] STANDARD * Guarantor: Sai Beck Jr. Account Type Relation to Patient Date of Phone Billing Address Personal/Family Self [address] [place] Care Teams Inspection And Testing Supervisor Relationship Specialty Start Date End Date Teri Scherer MD [address] [place] [address] Linus Bates [place] PCP - General Pediatrics 08/13/22 VI HAIDER Primary Care Provider: VI HAIDER NPI ID: [id number] Address: [address] [place] [address] [place] [address] Contact: [facility] Primary Care Provider 02/10/24
--- OUTSIDE RECORDS SUMMARY | 2024-10-10 14:08 | XMS_ITS | Encounter Summary ---
Author Organization [facility] Address [address] [place] [id number] Phone Care Team Providers Care Dental Laboratory Technician Apprentice Name Role Phone Alycia Garvey MD Primary Care Provider [phone] Encounter Details Date Type Department Care Team (Late st Contact Info) Description 01/20/2014 Documentation [facility] [place] [facility] [address] [place] [address] Family Medicine, Physician [address] [place] [address] Social History Tobacco Use Types Packs/Day Years Used Date Smoking Tobacco: Never Assessed Sex and Gender Information Value Date Recorded Sex Assigned at Not on file Legal Sex Male 5:06 PM EDT Gender Identity Male 03/27/2021 9:31 AM EST Sexual Orientation Straight 03/06/2022 11 :26 AM EST documented as of this encounter Plan of Treatment Not on file documented as of this encounter Visit Diagnoses Not on filedocumented in this encounter Care Teams Dental Laboratory Technician Apprentice Relationship Specialty Start Date End Date Alycia Garvey MD [address] [place] [address] PCP - General Pediatrics 08/04/23 09/21/24 documented as of this encounter
== END 2024-10-10 14:14 | disposition home or self-care (01) ==
LOC: HO.ED 14:07
PROVIDERS: Emergency Provider Emergency Medicine
DX: S83.91XA Sprain of unspecified site of right knee, initial encounter (principal); S82.891A Other fracture of right lower leg, initial encounter for closed fracture; M25.561 Pain in right knee; M25.571 Pain in right ankle and joints of right foot; X58.XXXA Exposure to other specified factors, initial encounter; Y93.9 Activity, unspecified; Y92.9 Unspecified place or not applicable; Y99.8 Other external cause status
CPT/HCPCS: 73564; 73610; 99281; 99283

== ENCOUNTER → 2024-10-10 13:00 | Outpatient (BNV) | payer OTHER, SELFPAY | PROVIDERS: Emergency Provider Emergency Medicine; Visit Provider Radiology Diagnostic Radiology | DX: M25.561 Pain in right knee (principal); M25.771 Osteophyte, right ankle | CPT/HCPCS: 73564; 73610 ==

== ENCOUNTER 2024-10-22 08:46 | Outpatient (AMB) | payer OTHER, SELFPAY ==
[2024-10-22 08:48] VITALS: BMI 24.3
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
--- OUTSIDE RECORDS SUMMARY | 2024-10-22 08:57 | XMS_ITS | Encounter Summary ---
Author Organization [facility] Address [address] [place] [address] Phone Care Team Providers Care Pole Incisor Operator Name Role Phone Alycia Garvey MD Primary Care Provider [phone] Encounter Details Date Type Department Care Team (Late st Contact Info) Description 01/20/2014 Documentation [facility] [place] Family Medicine [address] [place] [address] Family Medicine, Physician [address] [place] [address] Social History Tobacco Use Types Packs/Day Years [...] on filedocumented in this encounter Care Teams Pole Incisor Operator Relationship Specialty Start Date End Date Alycia Garvey MD [address] [place] [address] PCP - General Pediatrics 08/04/23 09/21/24 documented as of this encounter
--- OUTSIDE RECORDS SUMMARY | 2024-10-22 08:57 | XMS_ITS | Clinical Summary ---
Author Organization [facility] Address [address] [place] [address] Care Team Providers Care Logistics Loss Prevention Manager Name Role Phone Teri Scherer MD Primary Care Provider Allergies No known active allergies Medications No [...] patient's age to complete this topic Insurance [facility] [employer] Member Subscriber Plan / Payer (Ef fective 2022-Present) Name:Sai Beck Jr. Relation to Subscriber:Self Name:Sai Beck Jr. Payer ID:Not on file Group ID:Not on file Type:Medicaid Address: [address] [facility] ST[employer] * Guarantor: Sai Beck Jr. Account Type Relation to Patient Date of Phone Billing Address Personal/Family Self [address] [place] Care Teams Logistics Loss Prevention Manager Relationship Specialty Start Date End Date Teri Scherer MD [address] [place] [address] Linus Bates [place] PCP - General Pediatrics 08/13/22 VI HAIDER Primary Care Provider: VI HAIDER NPI ID: [id number] Address: [address] [place] [address] [place] [address] Contact: [facility] Primary Care Provider 02/10/24
== END 2024-10-22 09:30 | disposition home or self-care (01) ==
LOC: HO.HOS 08:47
PROVIDERS: PCP Pediatrics Adolescent Medicine; Visit Provider Physician Assistant
DX: S93.401A Sprain of unspecified ligament of right ankle, initial encounter (principal); S96.911A Strain of unspecified muscle and tendon at ankle and foot level, right foot, initial encounter; M22.2X1 Patellofemoral disorders, right knee; S83.411A Sprain of medial collateral ligament of right knee, initial encounter
CPT/HCPCS: 99203

== ENCOUNTER → 2024-10-22 08:46 | Outpatient (BNVA) | payer OTHER, SELFPAY | PROVIDERS: PCP Pediatrics Adolescent Medicine; Visit Provider Physician Assistant | DX: M22.2X1 Patellofemoral disorders, right knee (principal); S93.401A Sprain of unspecified ligament of right ankle, initial encounter; S96.911A Strain of unspecified muscle and tendon at ankle and foot level, right foot, initial encounter; S83.411A Sprain of medial collateral ligament of right knee, initial encounter | CPT/HCPCS: 99202 ==